=== PATIENT | female | born 1985 | race Caucasian/White ===

== ENCOUNTER 2019-01-09 21:15 | Emergency (ER) | payer OTHER ==
[~2019-01-09] VITALS: Ht 162.6 cm; Wt 92.3 kg
--- NOTE | 2019-01-09 21:29 | NUR ---
PT AMBULATED FROM TRIAGE TO ROOM 1 WITH STEADY GAIT.
--- NOTE | 2019-01-09 22:21 | NUR ---
MRI SCREENING FORM COMPLETED AND FAXED TO MRI. IV STARTED AND LABS DRAWN, EKG DONE. PT RESTING COMFORTABLY ON GURNEY, AWAITING MRI.
[2019-01-09 22:37] LABS: ALBUMIN 3.7 g/dL (3.4-5.0); ANION GAP 6 mmol/L (5-15); CALCIUM 8.7 mg/dL (8.5-10.1); CHLORIDE 109 mmol/L (98-107); CREATININE 0.88 mg/dL (0.55-1.02)
[2019-01-09 22:40] LABS: BASOPHILS # (AUTO) 0.08 x10^3/uL (0-0.1); BASOPHILS % (AUTO) 1 % (0-1); EOSINOPHILS # (AUTO) 0.05 x10^3/uL (0-0.4); EOSINOPHILS % (AUTO) 1 % (1-7); LYMPHOCYTES # (AUTO) 1.98 x10^3/uL (1-3.4); LYMPHOCYTES % (AUTO) 30 % (22-44); MD NO; MEAN CORPUSCULAR HEMOGLOBIN 29.1 pg (27.0-34.8); MEAN CORPUSCULAR HGB CONC 34.1 g/dL (32.4-35.8); MEAN CORPUSCULAR VOLUME 85.3 fL (80-100); MEAN PLATELET VOLUME 7.9 fL (7.4-10.4); MONOCYTES % (AUTO) 6 % (2-9); NEUTROPHILS # (AUTO) 4.03 x10^3/uL (1.8-6.8); NEUTROPHILS % (AUTO) 62 % (42-75); PLATELET COUNT 277 x10^3/uL (130-400); RED BLOOD COUNT 4.31 x10^6/uL (3.82-5.3); RED CELL DISTRIBUTION WIDTH 14.4 % (9.6-15.2)
[2019-01-09 22:44] LABS: INTERNATIONAL NORMALIZED RATIO 0.96 (0.93-1.1); PROTHROMBIN TIME 10.2 Seconds (9.6-11.5)
--- NOTE | 2019-01-09 22:59 | NUR ---
PT TO MRI WITH TECH.
[2019-01-09] MEDS ORDERED: GADOBUTROL 10 MMOL/10 ML PFS ONE (23:09)
[2019-01-10] MEDS ORDERED: VALACYCLOVIR 500MG TABLET PO ONE (00:30)
[2019-01-10 01:01] VITALS: BP 115/69
== END 2019-01-10 01:03 | disposition home or self-care (01) ==
LOC: ED 22:27
DX: G62.9 Polyneuropathy, unspecified (principal)
CPT/HCPCS: 36415; 70553; 80048; 82040; 85025; 85610; 85730; 93005; 99284; A9585; J7512

== ENCOUNTER 2019-03-31 13:23 | Emergency (ER) | payer OTHER ==
[~2019-03-31] VITALS: Ht 162.6 cm; Wt 91.9 kg
--- NOTE | 2019-03-31 14:12 | NUR ---
Pt c/o left sided numbness of face and left upper extremity numbness. Pt states symptoms began today. Pt has "ear pressure in both ears". Pt had similar symptoms and was seen in ED in January 2019. Pt is following up with neurology. Pt has steady gait and balance, 5/5 strength in upper and lower extermities, and feeling in tact in all limbs. NADN. No needs expressed.
[2019-03-31 14:19] LABS: BASOPHILS # (AUTO) 0.06 x10^3/uL (0-0.1); BASOPHILS % (AUTO) 1 % (0-1); EOSINOPHILS # (AUTO) 0.02 x10^3/uL (0-0.4); EOSINOPHILS % (AUTO) 0 % (1-7); LYMPHOCYTES # (AUTO) 1.23 x10^3/uL (1-3.4); LYMPHOCYTES % (AUTO) 13 % (22-44); MD NO; MEAN CORPUSCULAR HEMOGLOBIN 28.2 pg (27.0-34.8); MEAN CORPUSCULAR HGB CONC 33.5 g/dL (32.4-35.8); MEAN CORPUSCULAR VOLUME 84.3 fL (80-100); MEAN PLATELET VOLUME 7.5 fL (7.4-10.4); MONOCYTES # (AUTO) 0.24 x10^3/uL (0.2-0.8); MONOCYTES % (AUTO) 2 % (2-9); NEUTROPHILS # (AUTO) 8.25 x10^3/uL (1.8-6.8); NEUTROPHILS % (AUTO) 84 % (42-75); PLATELET COUNT 321 x10^3/uL (130-400); RED BLOOD COUNT 4.88 x10^6/uL (3.82-5.3); RED CELL DISTRIBUTION WIDTH 14.4 % (9.6-15.2)
[2019-03-31 14:25] LABS: ALBUMIN 3.9 g/dL (3.4-5.0); ANION GAP 6 mmol/L (5-15); CALCIUM 9.4 mg/dL (8.5-10.1); CHLORIDE 108 mmol/L (98-107); CREATININE 0.79 mg/dL (0.55-1.02)
[2019-03-31 14:29] VITALS: BP 101/70
--- NOTE | 2019-03-31 14:53 | NUR ---
Pt returned to room on [address] from [place].
--- NOTE | 2019-03-31 15:38 | NUR ---
TASK RN: Patient/Caregiver given discharge instructions and they have confirmed that they understand the instructions. Patient ambulatory with steady gait.
== END 2019-03-31 15:39 | disposition home or self-care (01) ==
LOC: ED 14:09
DX: R20.2 Paresthesia of skin (principal); R42 Dizziness and giddiness
CPT/HCPCS: 36415; 70450; 80048; 82040; 85025; 93005; 99284